=== PATIENT | female | born 2000 | race African-American/Black ===

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

== ENCOUNTER 2023-12-21 01:21 | Emergency (ER) | payer MEDICAID ==
[~2023-12-21] VITALS: Ht 172.7 cm; Wt 95.0 kg
[2023-12-21 01:26] VITALS: BP 106/70; PULSE 82; RESP 16; TEMP 97.4; O2SAT 99
[2023-12-21] MEDS: SODIUM CHLORIDE 0.9% 1,000 ML IV ONE (01:45)
[2023-12-21 02:20] LABS: CHLORIDE 110 mEq/L (98-107); POTASSIUM 3.3 mEq/L (3.5-5.1); SODIUM 141 mEq/L (136-145)
[2023-12-21 02:21] LABS: CALCIUM 9.3 mg/dL (8.7-10.4); CARBON DIOXIDE 18 mEq/L (21-32)
[2023-12-21 02:26] LABS: CREATININE 0.7 mg/dL (0.6-1.0); GLUCOSE 117 mg/dL (70-105); UREA NITROGEN BLOOD 8 mg/dL (9-23)
[2023-12-21 02:27] LABS: ETHANOL BLOOD 157 mg/dL (<10)
[2023-12-21 02:28] LABS: ALANINE AMINOTRANSFERASE 17 IU/L (10-49); ALBUMIN 4.9 g/dL (3.2-4.8); ASPARTATE AMINOTRANSFERASE 16 IU/L (<34); BILIRUBIN DIRECT 0.1 mg/dL (<=3.0); HCG SCREEN NEGATIVE
[2023-12-21 02:29] LABS: BILIRUBIN TOTAL 0.4 mg/dL (0.1-1.0); PROTEIN TOTAL 7.6 g/dL (6.0-8.3)
[2023-12-21 02:39] LABS: INR 0.9; PROTHROMBIN TIME 10.5 sec (9.6-11.0)
[2023-12-21] MEDS: ONDANSETRON HCL 4MG/2ML INJ IV STA (04:58)
[2023-12-21 05:22] LABS: BASOPHILS % 0.4 % (0.0-2.0); EOSINOPHILS % 0.2 % (0.0-5.0); HEMATOCRIT. 40.2 % (36.0-48.0); HEMOGLOBIN. 12.9 g/dL (12.0-16.0); LYMPHOCYTES % 12.6 % (20.0-50.0); MEAN CORPUSCULAR HEMOGLOBIN 26.6 pg (28.0-32.0); MEAN CORPUSCULAR HGB CONC 32.2 g/dL (31.0-37.0); MEAN CORPUSCULAR VOLUME 82.8 fL (81.0-99.0); MEAN PLATELET VOLUME 8.2 fl (7.4-10.4); NEUTROPHILS % 82.8 % (40.0-76.0); PLATELET 288 x1000/uL (130-400); RED BLOOD CELL COUNT 4.85 mill/uL (4.2-5.4); RED CELL DISTRIBUTION WIDTH 14.5 % (11.6-14.6); WHITE BLOOD COUNT 10.9 x1000/uL (4.5-11.0)
== END 2023-12-21 06:27 | disposition home or self-care (01) ==
LOC: ER 01:21
DX: F10.129 Alcohol abuse with intoxication, unspecified (principal); Z00.00 Encounter for general adult medical examination without abnormal findings; Y90.6 Blood alcohol level of 120-199 mg/100 ml
CPT/HCPCS: 80076; 80048; 80320; 84703; 83690; 85025; 85610; 36415; 96360; 99283; J7030; G0480